=== PATIENT | male | born 1955 | race Caucasian/White ===

== ENCOUNTER 2024-01-08 12:55 | Emergency (ER) | payer MEDICARE, MEDICAID ==
[~2024-01-08] VITALS: Ht 170.2 cm; Wt 77.0 kg
[2024-01-08 13:01] VITALS: O2SAT 98
[2024-01-08] MEDS: KETOROLAC 60MG/2ML VIAL IM ONE (13:40)
[2024-01-08] MEDS: ACETAMINOPHEN 500MG TABLET PO ONE (13:41)
[2024-01-08] MEDS ORDERED: NAPR-681 MT (14:17)
[2024-01-08 14:57] VITALS: BP 127/8; PULSE 66; RESP 17; TEMP 98.3
== END 2024-01-08 14:57 | disposition home or self-care (01) ==
LOC: ER 12:55
DX: M25.561 Pain in right knee (principal); W01.0XXA Fall on same level from slipping, tripping and stumbling without subsequent striking against object, initial encounter; Y93.89 Activity, other specified; Y92.89 Other specified places as the place of occurrence of the external cause; Y99.8 Other external cause status
CPT/HCPCS: 99283; 73562; 96372; J1885